=== PATIENT | male | born 1980 | race Hispanic/Latino ===

== ENCOUNTER 2017-10-14 20:09 | Emergency (ER) | payer SELFPAY | END 2017-10-14 22:54 | disposition home or self-care (01) | LOC: ERS 20:09 | DX: F41.9 Anxiety disorder, unspecified (principal); F32.9 Major depressive disorder, single episode, unspecified | CPT/HCPCS: 99284 ==

== ENCOUNTER 2025-04-13 08:25 | Emergency (ER) | payer SELFPAY | END 2025-04-13 08:52 | disposition home or self-care (01) | LOC: ERS 08:25 | DX: M54.50 Low back pain, unspecified (principal) | CPT/HCPCS: 99283 ==